=== PATIENT | female | born 1965 | race Hispanic/Latino ===

== ENCOUNTER → 2023-04-04 | Day surgery (SDC) | payer BC ==
[~2023-04-04] MED LIST: FENTANYL CITRATE/PF 100MCG/2 ML INJ ONE; LACTATED RINGER'S 1,000 ML ONE; LIPITOR10 MG PO; METFORMIN HCL500 MG PO; MIDAZOLAM HCL 2 MG/2 ML VIAL ONE; OR PHACO EYE KIT ONE; PREOP PHACO EYE KIT ONE
[2023-04-04 10:58] VITALS: TEMP 97.6
[2023-04-04 11:18] VITALS: BP 113/65; PULSE 59; RESP 18; O2SAT 99
== END | disposition home or self-care (01) ==
LOC: OR 07:17
PROVIDERS: ATTEND Ophthalmology
DX: H25.12 Age-related nuclear cataract, left eye (principal); E11.9 Type 2 diabetes mellitus without complications; K21.9 Gastro-esophageal reflux disease without esophagitis; Z79.84 Long term (current) use of oral hypoglycemic drugs; Z79.899 Other long term (current) drug therapy
CPT/HCPCS: 36415; 66984; 82948; J2250; J3010; J7121; V2632